=== PATIENT | male | born 1950 | race Caucasian/White ===

== ENCOUNTER 2022-03-16 18:52 | Emergency (ER) | payer MEDICARE, OTHER, SELFPAY ==
[2022-03-16 18:53] VITALS: BP 136/86; PULSE 124; RESP 16; TEMP 36.8; O2SAT 98; BMI 16.9
--- NOTE | 2022-03-16 20:54 | EX.ED.VIS.EY ---
HPI History of Present Illness Chief Complaint: Eye Problem Detail of Chief Complaint: Right eye pain secondary to blunt trauma Informant: patient Onset/Context/Timing Location: Left Eye Onset: Hours Context: Sudden Onset Timing: Continuous Current Severity: Mild Maximum Severity: Moderate Worsened by: Movement, blinking and light Relieved by: Nothing Associated Symptoms Associated Symptoms - Eyes: Burning, Foreign body sensation, Pain and Photophobia; Negative for Crusting, Drainage, Eyelid swelling, Itching, Matting and Redness Visual Changes: left: Blurred vision History of injury: Yes, Direct trauma, Foreign body and - (Branch fell from tree while mowing the yard) Visual correction: Glasses Narrative Narrative: Patient is a 71-year-old male who was mowing the yard. Patient states a branch or something fell from the tree. Struck him left eye. He has had pain since. Does complain of mild light sensitivity. He complains of pain with blinking. He denies double vision, blurred vision or loss of vision. He denies history of glaucoma. He has no other complaints. Prior similar symptoms: No Recent Illness/Hospitalization: No PFSH PFSH Medical History no medical history Home Medications multivitamin 1 tab PO DAILY 03/16/22 [History Last Taken Unknown] vitamin E 400 unit PO DAILY 03/16/22 [History Last Taken Unknown] Allergy/AdvReac Type Severity Reaction Status Date / Time No Known Allergies Allergy Verified 03/16/22 18:53 Surgical History no surgical history Social History (Updated 03/16/22 @ 20:[address] Ahsan Saleem MD) household members: none Smoking Status: Current some day smoker tobacco type: cigarettes ROS ROS ED Constitutional Constitutional ED: Denies chills, fever(s), subjective, sweats or weight loss Eyes Eyes: Reports other Details: Pain and foreign body sensation ; Denies blurry vision, change in vision or diplopia ENT ENT ED: Denies ear pain, rhinorrhea or sore throat Gastrointestinal Gastrointestinal: Denies nausea or vomiting Hematologic/Lymphatic Hematologic/Lymphatic: Denies easy bleeding or easy bruising EXAM Physical Exam Const Vital Signs: 03/16/22 18:53 Temperature 98.2 F Temperature Source Temporal Pulse Rate 124 H Respiratory Rate 16 Blood Pressure 136/86 H Blood Pressure Mean 102 Pulse Ox 98 Oxygen Delivery Method Room Air Positive well nourished and well developed General Appearance ED: well developed and NAD HEENT HEENT Narrative: There is no abrasion to the face or forehead. atraumatic; Negative for trauma or tenderness Nose: external nose normal and nares normal Eyes General Eye ED: Yes normal light reflex; Negative for normal appearance of both eyes, enophthalmos, exophthalmos, proptosis, pale conjunctiva or scleral icterus Alignment: alignment normal Periorbital: periorbital findings normal Eyelid: eyelids normal Conjunctiva: conjunctiva abnormal left Details: injection Sclera: sclera normal Pupil: PERRL and accommodation reflex normal EOM: Negative for EOM abnormal, movement deficit or nystagmus Direct Ophthalmoscopy: normal light reflex, No papilledema, anterior chamber normal and photophobia positive consensual response in the left eye Neck no lymphadenopathy, supple and no JVD Resp normal respiratory effort Cardio regular rate and regular rhythm Neuro oriented x3 and CN's II-XII intact bilaterally Sensorium / Orientation: alert Skin no wounds Lesions: no lesions Rashes: no rashes MDM MDM MDM Narrative Medical decision making narrative: Plan is visual acuity, anesthetized with tetracaine and stained with foreseen and perform slit-lamp exam to see if there is evidence of foreign body which was not seen with direct up, exam or corneal abrasion. Patient has a significant corneal abrasion. There may be a slight flap on the nasal side of the abrasion. There is no foreign body noted. There is no flare or cell anterior chamber. Patient was discharged with ciprofloxacin ophthalmic drop and referred to Dr. Garcia. Discharge Plan Triage Chief Complaint: Eye Problem ED Provider: Ahsan Saleem Dx/Rx/DC Orders Clinical Impression: Corneal abrasion, left Instructions: ED Corneal Abrasion Prescriptions: No Action multivitamin Tablet 1 tab PO DAILY RF: 0 vitamin E 400 unit Capsule 400 unit PO DAILY RF: 0 Primary Care Provider: Jc Monk Referrals: Shanti Garcia MD [STAFF PHYSICIAN] - 2 Days Jc Monk MD [Primary Care Provider] - Disposition Disposition: Home, Self Care
[2022-03-16] MEDS: Ciprofloxacin 0.3% 2.5ml Bottle 1 DRP LEFT EYE (22:13)
[2022-03-16] MEDS: Fluorescein 1 MG STRIP 1 STRIP LEFT EYE (22:13)
[2022-03-16] MEDS: Tetracaine 0.5% Ophthalmic Bottle 1 DRP LEFT EYE (22:14)
== END 2022-03-16 22:17 | disposition home or self-care (01) ==
PROVIDERS: Emergency Provider Emergency Medicine; PCP Internal Medicine; Visit Provider Emergency Medicine
DX: S05.02XA Injury of conjunctiva and corneal abrasion without foreign body, left eye, initial encounter (principal); W20.8XXA Other cause of strike by thrown, projected or falling object, initial encounter; F17.210 Nicotine dependence, cigarettes, uncomplicated
CPT/HCPCS: 99283

== ENCOUNTER 2024-10-31 15:48 | Emergency (ER) | payer MEDICARE, OTHER, SELFPAY ==
[2024-10-31 15:50] VITALS: BP 76/52; PULSE 68; RESP 14; TEMP 36.4; O2SAT 98; BMI 16.0
--- NOTE | 2024-10-31 16:06 | ED.VIS.FALL ---
HPI HPI - Fall History of Present Illness Chief Complaint: Fall Narrative Narrative: Chief complaint and HPI: Syncope. 73-year-old male with no significant past medical history but has not seen a doctor in 13 years presents for evaluation after a syncopal episode. Patient states that he was at a when he felt warm. He states that this happened to him last time he was at a and he left early without any complications. He states however he wanted to talk to more people so he stayed this time. He states when he was walking out the door he lost consciousness and woke up on the floor. He has abrasions to the left lateral face. He denies any headache, lightheadedness, blurry vision, neck pain, shortness of breath, chest pain, abdominal pain, nausea, vomiting, dysuria. On arrival in the ED and for EMS patient SBP in the 70s. Patient states that at baseline he thinks he runs low. He states the only thing he had to eat and drink today was a boost. He states he planed on eating after the . He denies any pain in the back or extremities. Currently states he is asymptomatic. Review of systems: See HPI Medications: As listed on the chart Allergies: As listed on the chart PFSH: Per chart Vital signs: As listed on the chart. Reviewed. Physical exam: Gen: A&O x3, NAD Head: Normocephalic, atraumatic Eyes: No sclera icterus, conjunctiva clear, PERRL, EOMI ENT: TMs clear BL, moist mucous membranes, no swelling/lacerations/blood in the mouth or the nares, No nasal septal hematoma, skin abrasions to the lateral face-mild tenderness to palpation Neck: Trachea midline, No JVD, Nontender CV: RRR, no murmurs, no chest wall TTP Resp: Lungs CTA BL, no w/r/c GI: Abd soft, non-distended, non-tender, no r/r/g Musc: Full ROM, no deformity, no spinal TTP, no shaylee step-offs Skin: Warm, dry, skin tear to the left dorsal hand-no pain with palpation of the hand, fingers, wrist, forearm Neuro: Alert, oriented, grossly intact, sensation intact, GCS 15 Psych: Cooperative, appropriate mood and affect PFSH PFSH Medical History no medical history Home Medications ?Medication ?Instructions ?Recorded ?Last Taken ?Type multivitamin 1 tab PO DAILY 03/16/22 10/30/24 History vitamin E 268 mg (400 unit) capsule 400 unit PO DAILY 03/16/22 10/30/24 History Allergy/AdvReac Type Severity Reaction Status Date / Time No Known Allergies Allergy Verified 10/31/24 15:53 Surgical History (Updated 10/31/24 @ 15:54 by Norma Whitley) Hx of tonsillectomy Social History (Updated 03/16/22 @ 20:[address] Ahsan Saleem MD) household members: none Smoking Status: Heavy Smoker (>10/day) EXAM Physical Exam Const Vital Signs: 10/31/24 15:50 10/31/24 15:55 10/31/24 16:16 Temperature 97.6 F L Temperature Source Oral Pulse Rate 68 73 Respiratory Rate 14 18 Respiratory Effort Normal Respiratory Depth Normal Respiratory Pattern Normal Blood Pressure 76/52 L 96/58 L Blood Pressure Mean 60 70 Pulse Ox 98 99 Oxygen Delivery Method Room Air Room Air Room Air 10/31/24 18:00 10/31/24 18:50 Temperature Temperature Source Pulse Rate Respiratory Rate Respiratory Effort Respiratory Depth Respiratory Pattern Blood Pressure 146/80 H 146/80 H Blood Pressure Mean 102 102 Pulse Ox Oxygen Delivery Method MDM MDM MDM Narrative Medical decision making narrative: 73-year-old gentleman presents for evaluation of syncopal episode. No past medical history although has not seen a doctor in 13 years. On arrival, patient is hypotensive with blood pressure 76/52. He states at baseline he thinks he runs low. He does admit to decreased p.o. intake today. See physical exam findings. Differential diagnosis includes but is not limited to symptomatic hypotension, vasovagal episode, dehydration, MAX, electrolyte abnormality, intracranial bleed, fracture, contusion, ACS. Low suspicion for PE. NS bolus ordered. Tetanus updated. Wounds were cleaned and dressed. No need for repair. Labs and imaging ordered. EKG and chest x-ray reviewed by me. See below. CBC without leukocytosis. Patient has anemia with a hemoglobin of 11.3. D-dimer elevated at 0.69 however is negative for age adjustment. Patient denies shortness of breath. Is not tachycardic or hypoxic. BMP with hypokalemia of 3 and renal sufficiency with creatinine of 1.33. Fluids running. P.o. potassium ordered. Lactic acid elevated at 2.3. Unclear etiology for patient's lactic acidosis however may be secondary to dehydration. Troponin unremarkable. CT head, cervical spine, face without acute traumatic injury. Blood pressure has improved with fluids. I suspect that patient's syncopal episode may have been secondary to dehydration and hypotension. When I went to reevaluate the patient he was not in his room. I was told he left. I was able to catch the patient prior to leaving the emergency department. He was agreeable to go back to his room for discussion. I updated the patient on all of his findings. I explained to him that I do not have a clear etiology for syncope although did tell him that I suspect it was likely due to dehydration and hypotension. I told him that I would like to repeat a lactic acid to make sure that this improved with fluids. Patient declined and states that he will be leaving. I told him at this point I do not believe it is safe to leave and that if he wishes to leave it will be AGAINST MEDICAL ADVICE. I personally explained to them that choosing to do so may result in permanent bodily harm or . I discussed at length that without further evaluation and monitoring there may be unforeseen circumstances and deterioration causing permanent bodily harm or because of their choice. He is alert alert and oriented and can make his own decisions. He states that he is aware of the serious risks as explained, but continues to wish to leave against medical advice. Considering his decision to leave against medical advice, follow-up has been arranged and they are aware of the importance of following up as instructed. He has been advised that he should return to the ED immediately if he changes his mind at any time, or if his condition begins to change or worsen. He confirmed understanding the plan. EKG: Interpreted by me/EM physician: EKG shows normal sinus rhythm without any acute ischemic changes. Heart rate 63. Diagnostic: Interpreted by me/EM physician: Chest x-ray without pneumonia, effusion, cardiomegaly, pneumothorax Impression: 1. Syncope 2. Lactic acidosis 3. Hypokalemia 4. Anemia 5. Renal insufficiency 6. Hypotension, resolved 7. Left AGAINST MEDICAL ADVICE Lab Data Labs: Laboratory Results - last 24 hr 10/31/24 10/31/24 10/31/24 15:30 16:15 16:41 WBC 8.4 RBC 3.67 L Hgb 11.3 L Hct 34.8 L MCV 94.8 H MCH 30.8 MCHC 32.5 RDW Std Deviation 44.5 H RDW Coeff of Rene 12.9 Plt Count 275 MPV 11.5 Immature Gran % (Auto) 0.000 Neut % (Auto) 57.0 Lymph % (Auto) 31.1 Nuckolls % (Auto) 9.5 Eos % (Auto) 1.3 Baso % (Auto) 0.7 Absolute Neuts (auto) 4.8 Absolute Lymphs (auto) 2.61 D-Dimer Quant (PE/DVT) 0.69 H* Sodium 142 Potassium 3.0 L Chloride 111 H Carbon Dioxide 26.0 Anion Gap 5 BUN 22 H Creatinine 1.33 H Estim Creat Clear Calc 41.84 Est GFR (MDRD) Af Amer 68 Est GFR (MDRD) Non-Af 56 L BUN/Creatinine Ratio 16.5 Glucose 135 H Lactic Acid 2.3 H* Calcium 9.6 Troponin I High Sens 4 POC Glucose 108 H Radiography Diagnostic Testing: Clinical Impression(s) from Imaging Studies Chest X-Ray 10/31/24 16:23 IMPRESSION: Pulmonary hyperinflation with no acute pulmonary abnormalities. Electronically Signed: Matt Greco MD at 17:50 EST Reading Location ID and State: [facility] / [place] Tel , Service support , Facial/Sinus 10/31/24 16:23 IMPRESSION: Negative CT facial bones without intravenous contrast. Electronically Signed: Matt Greco MD at 18:07 EST , Brain CT 10/31/24 16:26 IMPRESSION: Negative head/brain CT without intravenous contrast. Electronically Signed: Matt Greco MD at 18:00 EST , Cervical Spine CT 10/31/24 16:26 IMPRESSION: No acute findings in the cervical spine. Electronically Signed: Matt Greco MD at 18:09 EST , Discharge Plan Triage Chief Complaint: Fall ED Provider: Behzad Lowry Dx/Rx/DC Orders Clinical Impression: Acute hypotension, Syncope, Acidosis, lactic, Acute renal insufficiency Instructions: Treating Syncope: Prevention, Hypotension Dc, ED Renal Insufficiency Prescriptions: No Action multivitamin Tablet 1 tab PO DAILY vitamin E 400 unit Capsule 400 unit PO DAILY Primary Care Provider: Jc Monk Referrals: Jc Monk MD [[facility]] - 3-5 Days Activity Restrictions/Additional Instructions: You should return to the ED immediately if you change your mind at any time or if your condition begins to change or worsen. Please follow-up with your primary care physician. Print Language: Tamazight Disposition Disposition: Against Medical Advice Discharge Date/Time: 10/31/24 18:52
--- NOTE | 2024-10-31 16:13 | ED.RN ---
Dr. Templeton bedside
[2024-10-31 16:16] VITALS: BP 96/58; PULSE 73; RESP 18; O2SAT 99
--- NOTE | 2024-10-31 16:23 | EKG12_ITS ---
Test Reason : SYNCOPE Blood Pressure : */* mmHG Vent. Rate : 63 BPM Atrial Rate : 63 BPM P-R Int : 158 ms QRS Dur : 88 ms QT Int : 434 ms P-R-T Axes : 81 84 84 degrees QTcB Int : 444 ms Normal sinus rhythm Normal ECG Confirmed by Viral Suresh ([id number]), assignment editor SHANON TAVARES ([id number]) on 11/02/2024 6:56:56 AM Referred By: TA/NAILA Confirmed By: Viral Suresh
--- NOTE | 2024-10-31 16:23 | RAD_ITS ---
EXAM: XR CHEST, 2 VIEWS CLINICAL INDICATION: syncope TECHNIQUE: Frontal and lateral views of the chest. COMPARISON: No relevant prior studies available. FINDINGS: LUNGS AND PLEURAL SPACES: The lungs are hyperinflated. No pneumothorax. No effusion. HEART: Unremarkable. Cardiac silhouette not enlarged. MEDIASTINUM: Central airways and mediastinal contour are unremarkable. BONES/JOINTS: Unremarkable. No acute fracture. SOFT TISSUES: Unremarkable. RAD/Chest PA and Lateral IMPRESSION: Pulmonary hyperinflation with no acute pulmonary abnormalities. Electronically Signed: Matt Greco MD at 17:50 EST ,
--- NOTE | 2024-10-31 16:23 | CT_ITS ---
EXAM: CT MAXILLOFACIAL WITHOUT INTRAVENOUS CONTRAST CLINICAL INDICATION: trauma TECHNIQUE: Helically acquired images were obtained of the face without intravenous contrast. This CT exam was performed using one or more of the following dose reduction techniques: automated exposure control, adjustment of the mA and/or kV according to patient size, and/or use of iterative reconstruction technique. COMPARISON: No relevant prior studies available. FINDINGS: BONES/JOINTS: Unremarkable. No displaced fracture. No discrete lytic or blastic abnormalities. SOFT TISSUES: Unremarkable. No focal subcutaneous swelling. No discrete fluid collections. ORBITS: Unremarkable. Both globes are unremarkable. Extraocular muscles are normal. Retrobulbar fat appears unremarkable. SINUSES: Unremarkable as visualized. Clear. MASTOID AIR CELLS: Unremarkable as visualized. Clear. DENTAL: No acute findings. No periodontal osseous erosion. CT/Sinus/Facial Bone IMPRESSION: Negative CT facial bones without intravenous contrast. Electronically Signed: Matt Greco MD at 18:07 EST ,
--- NOTE | 2024-10-31 16:26 | CT_ITS ---
EXAM: CT HEAD WITHOUT INTRAVENOUS CONTRAST CLINICAL INDICATION: Trauma TECHNIQUE: Multiple axial images were obtained of the head without intravenous contrast. This CT exam was performed using one or more of the following dose reduction techniques: automated exposure control, adjustment of the mA and/or kV according to patient size, and/or use of iterative reconstruction technique. COMPARISON: No relevant prior studies available. FINDINGS: BRAIN AND EXTRA-AXIAL SPACES: Unremarkable. No intra- or extra-axial hemorrhage. No evidence of acute infarct. No intracranial mass or mass effect. There is preservation of the lema/white matter interface. Posterior fossa structures are unremarkable. Ventricles are appropriate for age. No hydrocephalus. Basal cisterns are patent. BONES/JOINTS: Unremarkable. No discrete lytic or blastic abnormalities. SINUSES: Unremarkable as visualized. Clear. MASTOID AIR CELLS: Unremarkable. Clear. ORBITS: Visualized globes, extraocular muscles, optic nerves and retrobulbar fat appear unremarkable. CT/Brain/Head without Contrast IMPRESSION: Negative head/brain CT without intravenous contrast. Electronically Signed: Matt Greco MD at 18:00 EST ,
--- NOTE | 2024-10-31 16:26 | CT_ITS ---
EXAM: CT CERVICAL SPINE WITHOUT INTRAVENOUS CONTRAST CLINICAL INDICATION: Trauma TECHNIQUE: Helically acquired images were obtained of the cervical spine without intravenous contrast. 2D reformatted images were reviewed. This CT exam was performed using one or more of the following dose reduction techniques: automated exposure control, adjustment of the mA and/or kV according to patient size, and/or use of iterative reconstruction technique. COMPARISON: No relevant prior studies available. FINDINGS: VERTEBRAE: There is an incomplete posterior arch of C1 which is an anatomic variant. No fracture. No traumatic subluxation. No discrete lytic or blastic abnormality. Normal alignment. Normal craniocervical junction and cervicothoracic junction. DISCS/SPINAL CANAL/NEURAL FORAMINA: Unremarkable. Disc heights are preserved. No critical stenosis. SOFT TISSUES: Unremarkable. No prevertebral soft tissue swelling. LYMPH NODES: Unremarkable. No cervical adenopathy. LUNG APICES: Unremarkable as visualized. Clear. CT/Spine Cervical without Contras IMPRESSION: No acute findings in the cervical spine. Electronically Signed: Matt Greco MD at 18:09 EST ,
[2024-10-31] MEDS: 0.9% Normal Saline (1000mL) 1,000 ML 1000 ML IV (16:28)
[2024-10-31 16:32] LABS: Bedside Glucose 108 mg/dL (74-106)
[2024-10-31] MEDS: Diphth,Pertuss(Acell),Tet Vac 0.5 ML Vial IM (16:34)
[2024-10-31 16:51] LABS: White Blood Count 8.4 K/mm3 (4.4-11.0)
--- NOTE | 2024-10-31 16:51 | ED.RN ---
Patient transported to radiology
[2024-10-31 16:52] LABS: Hematocrit 34.8 % (40-54); Hemoglobin 11.3 g/dL (13.0-16.5); Mean Corp Hgb Conc 32.5 g/dL (32-36); Mean Corpuscular Hgb 30.8 pg (27.0-32.0); Mean Corpuscular Volume 94.8 fL (80-94); RBC Distribution Width CV 12.9 % (11.6-14.6); Red Blood Count 3.67 M/mm3 (4.6-6.2)
[2024-10-31 16:53] LABS: Basophil% 0.7 % (0-1); Eosinophils% 1.3 % (0-5); Lymphocyte % 31.1 % (19-41); Mean Platelet Vol. 11.5 fl (6.2-12.0); Monocyte% 9.5 % (0-10); Platelet Count 275 K/mm3 (150-450); RBC Distribution Width SD 44.5 fl (35.1-43.9)
[2024-10-31 16:54] LABS: Absolute Neutrophil Count 4.8 X10^3/uL (2.0-7.7); Neutrophil # 4.79 X10^3/uL (2.7-7.7)
[2024-10-31 16:55] LABS: Absolute Lymphocyte Count 2.61 X10^3/uL (0.83-4.51)
[2024-10-31 16:58] LABS: Anion Gap 5 (5-15); BUN 22 mg/dL (7-18); BUN/Creat Ratio 16.5 RATIO (10-20); Calcium,Total 9.6 mg/dL (8.5-10.1); Chloride 111 mmol/L (98-107); Creatinine, Serum 1.33 mg/dL (0.70-1.30); EST Glomerular Filtration Rate 56 mL/min (>60); Est Glom Filt Rate - Afr Amer 68 mL/min (>60); Estimated Creatinine Clearance 41.84 ml/min; Glucose 135 mg/dL (74-106); Sodium Level 142 mmol/L (136-145); Troponin-I HS (w/2H Reflex) 4 pg/mL (3.0-78.0)
[2024-10-31 17:17] LABS: D-Dimer Quantitative (DVT/PE) 0.69 FEU/ug/m (0.27-0.49)
[2024-10-31 17:24] LABS: Lactic Acid 2.3 mmol/L (0.4-1.9)
[2024-10-31 18:00] VITALS: BP 146/80
--- NOTE | 2024-10-31 18:23 | ED.RN ---
this RN was walking by patients room. Patient was dressed and blood was all over the bed sheets. He had taken out his IV and gotten himself dressed and states he is ready to go. I offered him his potassium and things ordered but he refused and states he feels better. Dr. Templeton, charge nurse, and primary RN informed. AMA paperwork signed
[2024-10-31 18:33] LABS: Reflex Troponin-HS? (from REC) Y
[2024-10-31 18:50] VITALS: BP 146/80
[2024-10-31 20:45] LABS: Reflex Lactate? Y
== END 2024-10-31 18:52 | disposition left against medical advice (07) ==
PROVIDERS: Emergency Provider Surgery; PCP Internal Medicine; Visit Provider Surgery
DX: I95.9 Hypotension, unspecified (principal); R55 Syncope and collapse; F17.200 Nicotine dependence, unspecified, uncomplicated; N28.9 Disorder of kidney and ureter, unspecified; E87.20 Acidosis, unspecified
CPT/HCPCS: 70450; 70486; 71046; 72125; 80048; 82962; 83605; 84484; 85025; 85379; 90715; 93005; 96360; 96361; 99285; A4216